=== PATIENT | male | born 1990 | race Caucasian/White ===

== ENCOUNTER 2018-02-09 17:41 | Emergency (ER) | payer BC, OTHER ==
[2018-02-09 17:52] VITALS: BP 135/88; PULSE 75; RESP 18; TEMP 98.1
[2018-02-09] MEDS ORDERED: IBUPROFEN 600 MG TAB PO STA (18:35)
--- NOTE | 2018-02-09 19:20 | XR ---
PROCEDURE: XR hand complete RT 3 views DATE AND TIME: 02/09/2018 6:24 PM REFERRING PHYSICIAN: Ravi Bryan CLINICAL INDICATION: PHH, Pain TECHNIQUE: Department protocol. COMPARISON: None FINDINGS: There is no fracture or malalignment. The soft tissues are unremarkable. IMPRESSION: NO ACUTE PROCESS.
--- NOTE | 2018-02-09 19:40 | ED ---
General Adult HPI - General Chief complaint: Extremity Injury, Upper Stated complaint: RT HAND INJURY/CRUSHING Time Seen by Provider: 02/09/18 17:54 Source: patient, RN notes reviewed Mode of arrival: ambulatory Limitations: no limitations - History of Present Illness Initial comments: 27-year-old male presents to the emergency department for a chief complaint of right hand injury. Patient states he was throwing a trashcan into a dumpster when it fell onto his right hand. Patient denies pain in the wrist. Patient states he has broken the hand before. Patient denies any other injuries. Patient has no other complaints at this time including shortness of breath, chest pain, abdominal pain, nausea or vomiting, headache, or visual changes. - Related Data Home Medications Medication Instructions Recorded Confirmed Acetaminophen Tab [Tylenol Tab] 1,000 mg PO Q6HR PRN 05/26/16 05/26/16 Allergies Allergy/AdvReac Type Severity Reaction Status Date / Time acetaminophen [From Vicodin] Allergy Nausea & Verified 02/09/18 17:53 Vomiting hydrocodone [From Vicodin] Allergy Nausea & Verified 02/09/18 17:53 Vomiting latex Allergy Rash/Hives Verified 02/09/18 17:53 Review of Systems ROS Statement: Those systems with pertinent positive or pertinent negative responses have been documented in the HPI. ROS Other: All systems not noted in ROS Statement are negative. Past Medical History Past Medical History: No Reported History History of Any Multi-Drug Resistant Organisms: None Reported Past Surgical History: No Surgical Hx Reported Past Psychological History: Anxiety, Depression Smoking Status: Never smoker Past Alcohol Use History: Rare Past Drug Use History: None Reported General Exam Limitations: no limitations General appearance: alert, in no apparent distress Head exam: Present: normocephalic, normal inspection Eye exam: Present: normal appearance, PERRL, EOMI. Absent: scleral icterus, conjunctival injection, periorbital swelling ENT exam: Present: normal exam, mucous membranes moist Neck exam: Present: normal inspection, full ROM. Absent: tenderness, meningismus, lymphadenopathy Respiratory exam: Present: normal lung sounds bilaterally. Absent: respiratory distress, wheezes, rales, rhonchi, stridor Cardiovascular Exam: Present: regular rate, normal rhythm, normal heart sounds. Absent: systolic murmur, diastolic murmur, rubs, gallop, clicks Extremities exam: Present: full ROM, tenderness (Patient has full range of motion of all digits in the right hand including full extension and flexion. Full range of motion of the right wrist. Tenderness to the fifth metacarpal dorsal aspect right hand. No tenderness to the wrist. No tenderness to the scaphoid area.), normal capillary refill (Refill less than 2 seconds and radial pulse 2+ in the right upper extremity.), joint swelling (Mild swelling and ecchymosis noted over the right dorsal hand around the fourth and fifth metacarpal), other (Sensation intact in the right upper extremity.) Course Vital Signs 02/09/18 17:50 Temperature 98.1 F Pulse Rate 75 Respiratory 18 Rate Blood Pressure 135/88 O2 Sat by Pulse 98 Oximetry Medical Decision Making - Medical Decision Making 27-year-old male presents to the emergency department for a chief complaint of right hand injury about one hour ago. Patient dropped a trash can on his right hand. Patient is work in the hand before. On exam patient has full range motion of the right handed digits the right hand. Tenderness to the dorsal fourth and fifth metacarpal of the right hand. No scaphoid tenderness. No tenderness elsewhere in the right upper extremity. Neurovascular intact. X-ray of the right hand shows no fracture or malalignment in soft tissues are unremarkable. Patient will be discharged home. He was wrapped with an Frank wrap and educated on rice therapy as well as Motrin and Tylenol. He will follow up with primary care in 1-2 days. He is aware he can return to the emergency department if symptoms worsen. He is also aware he may need repeat x- rays in 7-10 days if symptoms do not resolve. Disposition Clinical Impression: Contusion, hand Disposition: HOME SELF-CARE Condition: Good Instructions: Hand Sprain (ED), RICE Therapy (ED) Additional Instructions: Please take Motrin or Tylenol for pain. Please rest ice and elevate the right hand. Use Frank wrap as directed. Follow-up with primary care in 1-2 days. Return to the emergency department if you have any worsening symptoms. Is patient prescribed a controlled substance at d/c from ED?: No Referrals: Oli Blanco DO [STAFF PHYSICIAN] - 1-2 days Time of Disposition: 19:44
== END 2018-02-09 19:45 | disposition home or self-care (01) ==
LOC: EC 17:41
DX: S60.221A Contusion of right hand, initial encounter (principal); Z88.6 Allergy status to analgesic agent; Z91.040 Latex allergy status; Z88.5 Allergy status to narcotic agent; W20.8XXA Other cause of strike by thrown, projected or falling object, initial encounter; Y92.89 Other specified places as the place of occurrence of the external cause
CPT/HCPCS: 99283

== ENCOUNTER 2019-12-29 11:56 | Emergency (ER) | payer BC, OTHER ==
[2019-12-29 12:17] VITALS: RESP 18; TEMP 98
[2019-12-29] MEDS ORDERED: MORPHINE SULFATE 4 MG/ML SYRINGE IM STA (12:34)
--- NOTE | 2019-12-29 12:41 | ED ---
Abdominal Pain HPI - General Chief Complaint: Abdominal Pain Stated Complaint: Post Op Abd Pain Time Seen by Provider: 12/29/19 12:20 Source: patient Mode of arrival: ambulatory Limitations: no limitations - History of Present Illness Initial Comments: Patient is a 29-year-old male presenting to the emergency department with a chief complaint of abdominal pain. Patient is status post day 1 after vasectomy. Patient reports a vasectomy procedure that occurred less than 24 hours ago. Patient reports pain mostly located in the left testicle along with the swelling in the region. States the pain is not radiating into his lower abdomen. States he is currently taking Toradol for the pain which helps take the edge off but the pain is still a 6. Does report nausea. Does not take the Toradol. Denies any flank pain. Denies any fevers or chills. Denies any urinary symptoms. - Related Data Home Medications Medication Instructions Recorded Confirmed Acetaminophen Tab [Tylenol Tab] 1,000 mg PO Q6HR PRN 05/26/16 05/26/16 Previous Rx's Medication Instructions Recorded HYDROcodone/APAP 10-325MG [[place] 1 tab PO Q6HR PRN 3 Days #12 tab 12/29/19 10-325] Ondansetron Odt [Zofran Odt] 4 mg PO Q8HR PRN #14 tab 12/29/19 Allergies Allergy/AdvReac Type Severity Reaction Status Date / Time hydrocodone [From Vicodin] Allergy Nausea & Verified 02/09/18 17:53 Vomiting latex Allergy Rash/Hives Verified 02/09/18 17:53 Review of Systems ROS Statement: Those systems with pertinent positive or pertinent negative responses have been documented in the HPI. ROS Other: All systems not noted in ROS Statement are negative. Past Medical History Past Medical History: No Reported History History of Any Multi-Drug Resistant Organisms: None Reported Past Surgical History: No Surgical Hx Reported Additional Past Surgical History / Comment(s): vestomy Past Psychological History: Anxiety, Depression Smoking Status: Never smoker Past Alcohol Use History: Rare Past Drug Use History: None Reported General Exam Limitations: no limitations General appearance: alert, in no apparent distress, obese Head exam: Present: atraumatic, normocephalic, normal inspection Eye exam: Present: normal appearance, PERRL, EOMI Pupils: Present: normal accommodation ENT exam: Present: normal exam, normal oropharynx, mucous membranes moist Neck exam: Present: normal inspection, full ROM Respiratory exam: Present: normal lung sounds bilaterally. Absent: respiratory distress, wheezes Cardiovascular Exam: Present: regular rate, normal rhythm, normal heart sounds GI/Abdominal exam: Present: soft. Absent: distended, tenderness, guarding exam: Present: testicular tenderness (Left-sided testicular tenderness), scrotal swelling. Absent: normal inspection (2 sutures noted in the midline of the scrotum.), urethral discharge Extremities exam: Present: normal inspection, full ROM Back exam: Present: normal inspection, full ROM Neurological exam: Present: alert, oriented X3 Psychiatric exam: Present: normal affect, normal mood Skin exam: Present: warm, dry, intact, normal color Course Vital Signs 12/29/19 12/29/19 12:14 14:05 Temperature 98.0 F Pulse Rate 87 90 Respiratory 18 18 Rate Blood Pressure 145/80 134/83 O2 Sat by Pulse 99 Oximetry Medical Decision Making - Medical Decision Making Patient is a 29-year-old male day one status post vasectomy presenting to the emergency department with a chief complaint of testicular pain. On exam patient does have postsurgical testicular swelling with tenderness in the left 70 signs of erythema. 2 sutures are noted in the midline of the scrotum. Patient does have pain radiating to his lower abdomen. Patient is currently taking Toradol for pain. Patient was given 4 mg of morphine. Ultrasound performed reveals some amounts of scrotal fluid along with a small hydrocele. UA is unremarkable. I advised the patient to follow-up with Dr Gay who performed the surgery. Return parameters were thoroughly discussed with patient was understanding and agreeable. He was advised to apply ice compress to the testicles as directed by the radiologist. Patient will be discharged with less than 3 days of [place]. Advised not to drive or operate heavy machinery when taking the medication. Case discussed with Dr. Serrato who is agreeable with the treatment plan. - Lab Data Lab Results 12/29/19 Range/Units 12:50 Urine Color Yellow Urine Appearance Cloudy (Clear) Urine pH 7.0 (5.0-8.0) Ur Specific [place] 1.031 (1.001-1.035) Urine Protein Trace H (Negative) Urine Glucose (UA) Negative (Negative) Urine Ketones Negative (Negative) Urine Blood Negative (Negative) Urine Nitrite Negative (Negative) Urine Bilirubin Negative (Negative) Urine Urobilinogen <2.0 (<2.0) mg/dL Ur Leukocyte Esterase Negative (Negative) Urine RBC 1 (0-5) /hpf Urine WBC 3 (0-5) /hpf Ur Squamous Epith Cells <1 (0-4) /hpf Amorphous Sediment Rare H (None) /hpf Urine Mucus Rare H (None) /hpf Disposition Clinical Impression: Testicular pain, unspecified Disposition: HOME SELF-CARE Condition: Stable Instructions (If sedation given, give patient instructions): Scrotal Pain (ED), Vasectomy (DC) Additional Instructions: Return to emergency department if symptoms worsen. Take prescribed medication as directed. Do not drive or operate heavy machinery when taking the medication. Prescriptions: HYDROcodone/APAP 10-325MG [[place] 10-325] 1 tab PO Q6HR PRN 3 Days #12 tab PRN Reason: Pain Is patient prescribed a controlled substance at d/c from ED?: No Referrals: None,Stated [Primary Care Provider] - 1-2 days Time of Disposition: 14:13
[2019-12-29 13:10] LABS: Amorphous Sediment,Urine Rare /hpf; Appearance,Urine Cloudy (Clear); Bilirubin,Urine Negative (Negative); Blood,Urine Negative (Negative); Color,Urine Yellow; Glucose,Urine (UA) Negative (Negative); Ketones,Urine Negative (Negative); Leukocyte Esterase,Urine Negative (Negative); Mucus,Urine Rare /hpf; Nitrite,Urine Negative (Negative); Protein,Urine Trace (Negative); RBC,Urine 1 /hpf (0-5); Specific Gravity,Urine 1.031 (1.001-1.035); Squamous Epithelial Cell,Urine <1 /hpf (0-4); Urobilinogen,Urine <2.0 mg/dL (<2.0); WBC,Urine 3 /hpf (0-5)
--- NOTE | 2019-12-29 13:41 | US ---
EXAMINATION TYPE: US scrotum with doppler. Grayscale and color Doppler Duplex imaging performed of t lima scrotum. DATE OF EXAM: 12/29/2019 COMPARISON: NONE CLINICAL HISTORY: Post vasectomy pain, scrotal swelling and pain on left. EXAM MEASUREMENTS: TESTICLES: Right Testicle: 4.4 x 2.8 x 2.9 cm Left Testicle: 4.5 x 2.7 x 3.1 cm EPIDIDYMIS HEAD: Right Epididymis: 0.9cm Left Epididymis: 0.9 cm Doppler performed to assess for testicular vascularity; good bilateral color flow and waveforms are s een. Presence of hydroceles: Left measuring 2.7 x 0.4 x 1.6cm Presence of varicoceles: no Color flow images document satisfactory blood flow to both testicles. Slightly suboptimal as comparis on views are not performed. IMPRESSION: Small left scrotal fluid collection or hydrocele.
[2019-12-29 14:05] VITALS: BP 134/83; PULSE 90
== END 2019-12-29 14:20 | disposition home or self-care (01) ==
LOC: EC 11:56
DX: N50.812 Left testicular pain (principal); N43.3 Hydrocele, unspecified; Z91.040 Latex allergy status; Z88.5 Allergy status to narcotic agent; Z88.6 Allergy status to analgesic agent; Z98.52 Vasectomy status
CPT/HCPCS: 81001; 93975; 76870; 99284; 96372; J2270

== ENCOUNTER 2020-02-24 15:32 | Emergency (ER) | payer OTHER ==
[2020-02-24 15:49] VITALS: BP 130/84; PULSE 89; RESP 20; TEMP 99
[2020-02-24] MEDS ORDERED: ORPHENADRINE 30 MG/ML 2 ML VIAL IM STA (16:01)
--- NOTE | 2020-02-24 16:05 | ED ---
General Adult HPI - General Chief complaint: Back Pain/Injury Stated complaint: back injury Time Seen by Provider: 02/24/20 15:54 Source: patient, RN notes reviewed Mode of arrival: ambulatory Limitations: no limitations - History of Present Illness Initial comments: Patient is a pleasant 29-year-old male presenting to the emergency Department with low back pain. Patient was moving a piano a couple weeks ago and strained his back and had mild discomfort since then. Patient states around an hour ago he was walking his dog when his dog pulled him. Patient had sudden increase of his lower back discomfort. Discomfort is severe especially with movement. Discomfort is moderate at rest. No radiation. No incontinence or retention of bowel or bladder. No leg weakness. No history of chronic back problems. No abdominal pain. - Related Data Home Medications Medication Instructions Recorded Confirmed Acetaminophen Tab [Tylenol Tab] 1,000 mg PO Q6HR PRN 05/26/16 05/26/16 Previous Rx's Medication Instructions Recorded HYDROcodone/APAP 10-325MG [[place] 1 tab PO Q6HR PRN 3 Days #12 tab 12/29/19 10-325] Ondansetron Odt [Zofran Odt] 4 mg PO Q8HR PRN #14 tab 12/29/19 Cyclobenzaprine [Flexeril] 10 mg PO TID PRN #12 tablet 02/24/20 Ibuprofen [Motrin] 600 mg PO Q6HR PRN #20 tab 02/24/20 Allergies Allergy/AdvReac Type Severity Reaction Status Date / Time hydrocodone [From Vicodin] Allergy Nausea & Verified 02/24/20 15:49 Vomiting latex Allergy Rash/Hives Verified 02/24/20 15:49 Review of Systems ROS Statement: Those systems with pertinent positive or pertinent negative responses have been documented in the HPI. ROS Other: All systems not noted in ROS Statement are negative. Constitutional: Denies: fever Eyes: Denies: eye pain ENT: Denies: ear pain Respiratory: Denies: cough Cardiovascular: Denies: chest pain Endocrine: Denies: fatigue Gastrointestinal: Denies: abdominal pain Genitourinary: Denies: urgency, dysuria Musculoskeletal: Reports: as per HPI, back pain Skin: Denies: rash Neurological: Denies: weakness Past Medical History Past Medical History: No Reported History History of Any Multi-Drug Resistant Organisms: None Reported Past Surgical History: No Surgical Hx Reported Additional Past Surgical History / Comment(s): vestomy Past Psychological History: Anxiety, Depression Smoking Status: Never smoker Past Alcohol Use History: None Reported Past Drug Use History: None Reported General Exam Limitations: no limitations General appearance: alert, in no apparent distress Head exam: Present: normocephalic Eye exam: Present: normal appearance Neck exam: Present: normal inspection Respiratory exam: Present: normal lung sounds bilaterally Cardiovascular Exam: Present: regular rate, normal rhythm Expanded Peripheral pulses: 2+: Dorsalis Pedis (R), Dorsalis Pedis (L) GI/Abdominal exam: Present: soft. Absent: tenderness, pulsatile mass Extremities exam: Present: normal inspection Back exam: Present: tenderness (Patient does have mild to moderate tenderness mid lower lumbar spine) Neurological exam: Present: alert. Absent: motor sensory deficit Expanded Sensory exam: Lower Extremity Light Touch: Normal Motor strength exam: RLE: 5, LLE: 5 Psychiatric exam: Present: normal affect, normal mood Skin exam: Present: normal color Course Vital Signs 02/24/20 15:46 Temperature 99 F Pulse Rate 89 Respiratory 20 Rate Blood Pressure 130/84 O2 Sat by Pulse 96 Oximetry Medical Decision Making - Medical Decision Making Patient reevaluated and resting comfortably in bed. Patient states muscle r elaxer is starting to help. Patient updated on results and need for follow-up. - Radiology Data Radiology results: image reviewed (Lumbar spine x-rays show no acute process) Disposition Clinical Impression: Low back pain Disposition: HOME SELF-CARE Condition: Stable Instructions (If sedation given, give patient instructions): Acute Low Back Pain (ED) Additional Instructions: Please follow-up with primary care physician this week, number provided. Return for leg weakness, loss of sensation, loss of control of bowel or bladder, worsening symptoms or other concerns. Prescription sent to [facility] in [place] Prescriptions: Cyclobenzaprine [Flexeril] 10 mg PO TID PRN #12 tablet PRN Reason: Pain Ibuprofen [Motrin] 600 mg PO Q6HR PRN #20 tab PRN Reason: Pain Is patient prescribed a controlled substance at d/c from ED?: No Referrals: Raad Araiza MD [STAFF PHYSICIAN] - 1-2 days Anurag Guzman MD [STAFF PHYSICIAN] - 1-2 days Time of Disposition: 16:54
--- NOTE | 2020-02-24 16:42 | XR ---
EXAMINATION TYPE: XR lumbosacral spine min 4V DATE OF EXAM: 02/24/2020 COMPARISON: NONE HISTORY: Back pain TECHNIQUE: 5 views FINDINGS: Lumbar vertebra have normal alignment. Disc spaces are fairly normal. Posterior elements ar e intact. Sacroiliac joints appear intact. IMPRESSION: Negative lumbar spine exam. No fracture.
[2020-02-24] MEDS ORDERED: ACET/COD 300 MG/30 MG STARTER PACK 6 TAB BTL PO STA (16:52)
== END 2020-02-24 17:09 | disposition home or self-care (01) ==
LOC: EC 15:32
DX: M54.5 Low back pain (principal); Z88.5 Allergy status to narcotic agent; Z91.040 Latex allergy status; X50.0XXA Overexertion from strenuous movement or load, initial encounter; Y93.J1 Activity, piano playing
CPT/HCPCS: 99283; 96372; 72110; J2360

== ENCOUNTER 2020-06-18 12:49 | Emergency (ER) | payer OTHER ==
[2020-06-18 12:58] VITALS: BP 129/76; PULSE 81; RESP 16; TEMP 99
[2020-06-18] MEDS ORDERED: TOPICAL SKIN ADHESIVE 1 EACH AMP TOPICAL ONE (13:13)
[2020-06-18] MEDS ORDERED: ONDANSETRON ODT 4 MG TAB PO STA (13:18)
--- NOTE | 2020-06-18 13:18 | ED ---
Wound/Laceration HPI - General Chief Complaint: Wound/Laceration Stated Complaint: Hand lac Time Seen by Provider: 06/18/20 13:00 Source: patient Mode of arrival: ambulatory Limitations: no limitations - History of Present Illness Initial Comments: 29-year-old male presenting today for chief complaint of laceration to the left index finger. Patient states that he poked himself with a exact O knife. On the tip of the left index year. He saw a lot of blood and covered and presented to the ER. Patient states his tetanus up-to-date denies additional complaints - Related Data Home Medications Medication Instructions Recorded Confirmed Acetaminophen Tab [Tylenol Tab] 1,000 mg PO Q6HR PRN 05/26/16 05/26/16 Previous Rx's Medication Instructions Recorded HYDROcodone/APAP 10-325MG [[place] 1 tab PO Q6HR PRN 3 Days #12 tab 12/29/19 10-325] Ondansetron Odt [Zofran Odt] 4 mg PO Q8HR PRN #14 tab 12/29/19 Cyclobenzaprine [Flexeril] 10 mg PO TID PRN #12 tablet 02/24/20 Ibuprofen [Motrin] 600 mg PO Q6HR PRN #20 tab 02/24/20 Allergies Allergy/AdvReac Type Severity Reaction Status Date / Time hydrocodone [From Vicodin] Allergy Nausea & Verified 06/18/20 12:58 Vomiting latex Allergy Rash/Hives Verified 06/18/20 12:58 Review of Systems ROS Statement: Those systems with pertinent positive or pertinent negative responses have been documented in the HPI. ROS Other: All systems not noted in ROS Statement are negative. Past Medical History Past Medical History: No Reported History History of Any Multi-Drug Resistant Organisms: None Reported Past Surgical History: No Surgical Hx Reported Additional Past Surgical History / Comment(s): vesectomy Past Psychological History: Anxiety, Depression Smoking Status: Never smoker Past Alcohol Use History: None Reported Past Drug Use History: None Reported General Exam - General Exam Comments Initial Comments: General: The patient is awake and alert, in no distress, and does not appear acutely ill. Eye: Pupils are equal, round and reactive to light, extra-ocular movements are intact. No nystagmus. There is normal conjunctiva bilaterally. No signs of icterus. Musculoskeletal: Normal ROM, no tenderness. Strength 5/5 MCP DIP and PIP joints. Sensation intact. Radial pulses equal bilaterally 2+. Neurological: A&O x 3. CN II-XII intact grossly, There are no obvious motor or sensory deficits. Coordination appears grossly intact. Speech is normal. Skin: Skin is warm and dry and no rashes. small 1/4cm to the tip of the left index finger. Psychiatric: Cooperative, appropriate mood & affect, normal judgment. Limitations: no limitations Course Vital Signs 06/18/20 12:55 Temperature 99 F Pulse Rate 81 Respiratory 16 Rate Blood Pressure 129/76 O2 Sat by Pulse 98 Oximetry Medical Decision Making - Medical Decision Making 29-year-old male presents today for chief complaint of left index laceration. very smlal very sperficial. cleansed exofin applied. pt states he feels silly now like he didnt need to come. patient discharged appearing well. Disposition Clinical Impression: Laceration of left index finger Disposition: HOME SELF-CARE Condition: Good Instructions (If sedation given, give patient instructions): Skin Adhesive Care (ED) Additional Instructions: Please use medication as discussed. Please follow-up with family doctor in the next 2 days. Please return to emergency room if the symptoms increase or worsen or for any other concerns. Is patient prescribed a controlled substance at d/c from ED?: No Referrals: Nonstaff,Physician [Primary Care Provider] - 1-2 days Time of Disposition: 13:18
== END 2020-06-18 13:29 | disposition home or self-care (01) ==
LOC: EC 12:49
DX: S61.211A Laceration without foreign body of left index finger without damage to nail, initial encounter (principal); Z88.5 Allergy status to narcotic agent; W26.0XXA Contact with knife, initial encounter; Y92.009 Unspecified place in unspecified non-institutional (private) residence as the place of occurrence of the external cause
CPT/HCPCS: 99282

== ENCOUNTER → 2023-09-28 | Outpatient (CLI) | payer BC, OTHER ==
[2023-09-28 15:48] LABS: Basophils # (A) 0.03 X 10*3/uL (0.00-0.10); Basophils % (A) 0.5 %; HCT 47.7 % (39.6-50.0); HGB 15.5 g/dL (13.0-17.0); Lymphocytes # (A) 2.74 X 10*3/uL (0.90-5.00); Lymphocytes % (A) 41.3 %; MCH 27.8 pg (27.0-32.0); MCHC 32.5 g/dL (32.0-37.0); MCV 85.6 FL (80.0-97.0); Mean Platelet Volume 10.4 FL (9.5-12.2); Monocytes # (A) 0.52 X 10*3/uL (0.20-1.00); Monocytes % (A) 7.8 %; NRBC Per 100 WBC 0 X 10*3/uL (0.00-0.01); Neutrophils % (A) 46.8 %; Platelet Count 292 X 10*3/uL (140-440); RBC 5.57 X 10*6/uL (4.40-5.60); RDW 12.4 % (11.5-14.5); WBC 6.63 X 10*3/uL (4.50-10.00)
[2023-09-28 16:07] LABS: ALT 40 U/L (10-49); AST 24 U/L (14-35); Albumin 4.2 g/dL (3.8-4.9); Albumin/Globulin Ratio 1.56 Ratio (1.60-3.17); Alkaline Phosphatase 91 U/L (41-126); Blood Urea Nitrogen 12.8 mg/dL (9.0-27.0); Calcium 9.9 mg/dL (8.7-10.3); Carbon Dioxide 25.6 mmol/L (21.6-31.8); Chloride 104 mmol/L (96-109); Chol/HDL Ratio 5.37 Ratio; Globulin 2.7 g/dL (1.6-3.3); Glucose 110 mg/dL (70-110); LDL Cholesterol,Calculated 105.9 mg/dL (0.0-131.0); Potassium 4.2 mmol/L (3.5-5.5); Sodium 140 mmol/L (135-145); Total Bilirubin 0.4 mg/dL (0.3-1.2); Total Protein 6.9 g/dL (6.2-8.2)
[2023-09-28 16:18] LABS: Hepatitis A Antibody IgM Nonreactive; Hepatitis B Core IgM Nonreactive; Hepatitis B Surface Antigen Nonreactive; Hepatitis C IgG Antibody Nonreactive
[2023-09-28 18:04] LABS: HSV I IgG Interp Negative (Negative); HSV II IgG Interp Negative (Negative)
[2023-09-28 18:17] LABS: HIV 2 AB Non-Reactive (Non-Reactive); HIV AB P24 Non-Reactive (Non-Reactive); HIV P24 AG Non-Reactive (Non-Reactive)
[2023-09-29 13:30] LABS: C. trachomatis,PCR Negative (Negative)
[2023-09-29 13:41] LABS: N. gonorrhoeae,PCR Negative (Negative)
== END | disposition home or self-care (01) ==
LOC: LABWHC1 08:51
PROVIDERS: ATTEND Internal Medicine
DX: Z00.00 Encounter for general adult medical examination without abnormal findings (principal); Z71.1 Person with feared health complaint in whom no diagnosis is made
CPT/HCPCS: 36415; 80053; 80061; 80074; 84443; 85025; 86695; 86696; 86780; 87390; 87491; 87591

== ENCOUNTER 2023-12-28 20:37 | Emergency (ER) | payer BC, OTHER ==
[2023-12-28 20:55] VITALS: TEMP 98.6
--- NOTE | 2023-12-28 21:24 | ED ---
Chest Pain HPI - General Chief Complaint: Chest Pain Stated Complaint: Chest Pain Time Seen by Provider: 12/28/23 21:24 Source: patient Mode of arrival: ambulatory - History of Present Illness Initial Comments: 33-year-old male presenting with chief complaint of chest pain. Pain has been ongoing for few days. He states that earlier today he picked up his daughter and felt a pop in his ribs. He has been having pain when moving his right shoulder. Pain is exclusive to the right side. No known injury. Pain is worse with coughing or deep breaths. No dizziness. No lower extremity swelling. No recent surgery or long travel. No history of blood clots. - Related Data Home Medications Medication Instructions Recorded Confirmed Acetaminophen Tab [Tylenol Tab] 1,000 mg PO Q6HR PRN 05/26/16 05/26/16 Previous Rx's Medication Instructions Recorded HYDROcodone/APAP 10-325MG [[place] 1 tab PO Q6HR PRN 3 Days #12 tab 12/29/19 10-325] Ondansetron Odt [Zofran Odt] 4 mg PO Q8HR PRN #14 tab 12/29/19 Cyclobenzaprine [Flexeril] 10 mg PO TID PRN #12 tablet 02/24/20 Ibuprofen [Motrin] 600 mg PO Q6HR PRN #20 tab 02/24/20 Lidocaine 5% Patch [Lidoderm 5% 1 patch TOPICAL DAILY PRN #30 patch 12/29/23 Patch] methylPREDNISolone Dose Pack 4 mg PO DIRECTED #1 packet 12/29/23 [Medrol Dose Pack] Allergies Allergy/AdvReac Type Severity Reaction Status Date / Time hydrocodone [From Vicodin] Allergy Nausea & Verified 12/28/23 20:46 Vomiting latex Allergy Rash/Hives Verified 12/28/23 20:46 Review of Systems ROS Statement: Those systems with pertinent positive or pertinent negative responses have been documented in the HPI. ROS Other: All systems not noted in ROS Statement are negative. 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 oral surgury Past Psychological History: Anxiety, Depression Smoking Status: Never smoker Past Alcohol Use History: None Reported Past Drug Use History: Marijuana General Exam - General Exam Comments Initial Comments: Visual Physical Exam Vital signs reviewed General: Well-appearing, nontoxic, no acute distress. Head: Normocephalic, atraumatic Eyes: PERRLA, EOMI ENT: Airway patent Chest: Nonlabored breathing Skin: No visual rash, normal skin tone Neuro: Alert and oriented 3 Musculoskeletal: No gross abnormalities Limitations: no limitations General appearance: alert, in no apparent distress Head exam: Present: atraumatic, normocephalic Eye exam: Present: normal appearance, EOMI Neck exam: Present: normal inspection Respiratory exam: Present: normal lung sounds bilaterally, chest wall tenderness. Absent: respiratory distress, wheezes, rales, rhonchi, stridor Cardiovascular Exam: Present: regular rate, normal rhythm, normal heart sounds. Absent: systolic murmur, diastolic murmur, rubs, gallop, clicks Extremities exam: Absent: pedal edema Neurological exam: Present: alert, oriented X3 Psychiatric exam: Present: normal affect, normal mood Skin exam: Present: normal color Course Vital Signs 12/28/23 12/29/23 12/29/23 20:40 00:14 01:30 Temperature 98.6 F Pulse Rate 96 92 Respiratory 16 18 16 Rate Blood Pressure 164/84 132/93 Blood Pressure 136/87 [Right Arm] O2 Sat by Pulse 96 95 Oximetry Chest Pain MDM - MDM I performed the quick note portion of this visit, electronically signed Neeru Scott PA-C Was pt. sent in by a medical professional or institution ([facility], RISK ANALYST, urgent care, hospital, or residential...) When possible be specific @ -No Did you speak to anyone other than the patient for history (EMS, parent, family, police, friend...)? What history was obtained from this source @ -No Did you review nursing and triage notes (agree or disagree)? Why? @ -I reviewed and agree with nursing and triage notes Were old charts reviewed (outside hosp., previous admission, EMS record, old EKG, old radiological studies, urgent care reports/EKG's, residential records)? Report findings @ -No old charts were reviewed Differential Diagnosis (chest pain, altered mental status, abdominal pain women, abdominal pain men, vaginal bleeding, weakness, fever, dyspnea, syncope, headache, dizziness, GI bleed, back pain, seizure, CVA, palpatations, mental health, musculoskeletal)? @ -[facility] Differential Chest Pain: Stable Angina, Unstable Angina, STEMI, NSTEMI Aortic Dissection, Pneumothorax, Musculoskeletal, Esophageal Spasm GERD, Cholecystitis, Pancreatitis, Zoster This is not meant to be an all-inclusive list. EKG interpreted by me (3pts min.). @ -EKG shows sinus rhythm ventricular rate 99. CT interval 156. QRS 101. QT 331. QTc 387. X-rays interpreted by me (1pt min.). @ -Chest x-ray shows normal chest CT interpreted by me (1pt min.). @ -None done U/S interpreted by me (1pt. min.). @ -None done What testing was considered but not performed or refused? (CT, X-rays, U/S, labs)? Why? @ -None What meds were considered but not given or refused? Why? @ -None Did you discuss the management of the patient with other professionals (professionals i.e. , PA, RISK ANALYST, lab, RT, psych nurse, high school social studies teacher, safety counselor, teacher, safety patrol officer, case mgr)? Give summary @ -No Was smoking cessation discussed for >3mins.? @ -No Was critical care preformed (if so, how long)? @ -No Were there social determinants of health that impacted care today? How? (Homelessness, low income, unemployed, alcoholism, drug addiction, transportation, low edu. Level, literacy, decrease access to med. care, custodial, rehab)? @ -No Was there de-escalation of care discussed even if they declined (Discuss DNR or withdrawal of care, Hospice)? DNR status @ -No What co-morbidities impacted this encounter? (DM, HTN, Smoking, COPD, CAD, Cancer, CVA, ARF, Chemo, Hep., AIDS, mental health diagnosis, sleep apnea, morbid obesity)? @ -None Was patient admitted / discharged? Hospital course, mention meds given and route, prescriptions, significant lab abnormalities, going to OR and other pertinent info. @ -33-year-old male presenting with chief complaint of chest pain. Pain is localized to the right side and is worse with range of motion, particularly movement of the right shoulder. History and physical exam are conducted. Lab work requires no action. Chest x-ray shows no acute process. EKG shows sinus rhythm. Patient reports improvement after Toradol and Decadron. He is provided lidocaine patch and educated on supportive management of musculoskeletal chest pain. Discharged home. Follow-up with PCP. Report back to ER with any new or worsening symptoms. Discussed return parameters and answered all questions. Patient conveyed verbal understanding and agreed to the plan. I discussed this case in detail with my attending Dr. Torres Undiagnosed new problem with uncertain prognosis? @ -No Drug Therapy requiring intensive monitoring for toxicity (Heparin, Nitro, Insulin, Cardizem)? @ -No Were any procedures done? @ -No Diagnosis/symptom? @ -Musculoskeletal chest pain Acute, or Chronic, or Acute on Chronic? @ -Acute Uncomplicated (without systemic symptoms) or Complicated (systemic symptoms)? @ -Uncomplicated Side effects of treatment? @ -No Exacerbation, Progression, or Severe Exacerbation? @ -No Poses a threat to life or bodily function? How? (Chest pain, [place], [place], pneumonia, PE, COPD, DKA, ARF, appy, cholecystitis, CVA, Diverticulitis, Homicidal, Suicidal, threat to staff... and all critical care pts) @ -Unlikely Disposition Clinical Impression: Musculoskeletal chest pain Disposition: HOME SELF-CARE Condition: Good Instructions (If sedation given, give patient instructions): Chest Pain (ED), Costochondritis (ED) Additional Instructions: Follow-up with your PCP. Report back to ER with any new or worsening symptoms. Take Motrin and Tylenol as needed for pain control. Prescriptions: Lidocaine 5% Patch [Lidoderm 5% Patch] 1 patch TOPICAL DAILY PRN #30 patch PRN Reason: Pain methylPREDNISolone Dose Pack [Medrol Dose Pack] 4 mg PO DIRECTED #1 packet Is patient prescribed a controlled substance at d/c from ED?: No Referrals: Davis Patel DO [Primary Care Provider] - 1-2 days Time of Disposition: 01:06
[2023-12-28 21:42] LABS: Basophils # (A) 0.1 k/uL (0-0.2); Basophils % (A) 1 %; Eosinophils # (A) 0.1 k/uL (0-0.7); Eosinophils % (A) 2 %; HCT 48.8 % (39.0-53.0); HGB 15.6 gm/dL (13.0-17.5); Lymphocytes # (A) 1.6 k/uL (1.0-4.8); Lymphocytes % (A) 19 %; MCH 27.9 pg (25.0-35.0); MCHC 31.9 g/dL (31.0-37.0); MCV 87.3 fL (80.0-100.0); Monocytes # (A) 0.6 k/uL (0-1.0); Monocytes % (A) 7 %; Neutrophils # (A) 5.7 k/uL (1.3-7.7); Neutrophils % (A) 70 %; Platelet Count 236 k/uL (150-450); RBC 5.59 m/uL (4.30-5.90); RDW 12.8 % (11.5-15.5); WBC 8.2 k/uL (3.8-10.6)
[2023-12-28 21:51] LABS: Partial Thromboplastin Time 26.9 sec (22.0-30.0); Prothrombin Time 11.3 sec (10.0-12.5)
[2023-12-28 22:01] LABS: ALT 36 U/L (4-49); AST 26 U/L (17-59); African American GFR (CKD) >90 (>60 ml/min/1.73 sqM); Albumin 4.5 g/dL (3.5-5.0); Alkaline Phosphatase 95 U/L (38-126); Anion Gap 8 mmol/L; Blood Urea Nitrogen 11 mg/dL (9-20); Calcium 9.6 mg/dL (8.4-10.2); Carbon Dioxide 27 mmol/L (22-30); Chloride 103 mmol/L (98-107); Glucose 102 mg/dL (74-99); Magnesium 1.8 mg/dL (1.6-2.3); Non-African American GFR(CKD) 87 (>60 ml/min/1.73 sqM); Sodium 138 mmol/L (137-145); Total Bilirubin 0.7 mg/dL (0.2-1.3); Total Protein 7.5 g/dL (6.3-8.2)
[2023-12-28] MEDS: DEXAMETHASONE SOD PHOSPHATE 10 MG/ML 1 ML VIAL IV STA (22:46)
[2023-12-28] MEDS: KETOROLAC 15 MG/ML 1 ML VIAL IVP STA (22:46)
--- NOTE | 2023-12-29 00:31 | XR ---
EXAM: XR Chest, 2 Views CLINICAL HISTORY: ITS.REASON XR Reason: chest pain TECHNIQUE: Frontal and lateral views of the chest. COMPARISON: No relevant prior studies available. FINDINGS: Lungs: Unremarkable. No consolidation. Pleural space: Unremarkable. No pneumothorax. Heart: Unremarkable. No cardiomegaly. Mediastinum: Unremarkable. Normal mediastinal contour. Bones/joints: Unremarkable. No acute fracture. IMPRESSION: Normal chest x-rays.
[2023-12-29] MEDS ORDERED: LIDOCAINE 4% PATCH TOPICAL ONE (01:06)
[2023-12-29 01:08] VITALS: PULSE 92
[2023-12-29 02:01] VITALS: BP 136/87; RESP 16
== END 2023-12-29 01:30 | disposition home or self-care (01) ==
LOC: EC 20:37
DX: R07.89 Other chest pain (principal); Z88.5 Allergy status to narcotic agent; Z91.040 Latex allergy status
CPT/HCPCS: 36415; 93005; 80053; 83735; 84484; 85025; 85610; 85730; 71046; 99285; 96374; 96375; J1100; J1885